=== PATIENT | female | born 2000 | race Caucasian/White ===

== ENCOUNTER 2022-11-27 09:41 | Emergency (ER) | payer OTHER ==
[2022-11-27] MEDS ORDERED: Acetaminophen 325 MG TAB ONE (10:20)
[2022-11-27] MEDS ORDERED: Ibuprofen 200 MG TAB ONE (10:20)
== END 2022-11-27 12:20 | disposition home or self-care (01) ==
LOC: ERS 09:41
DX: S52.122A Displaced fracture of head of left radius, initial encounter for closed fracture (principal); V18.0XXA Pedal cycle driver injured in noncollision transport accident in nontraffic accident, initial encounter

== ENCOUNTER 2023-09-27 19:26 | Emergency (ER) | payer MEDICAID, SELFPAY ==
[2023-09-27 19:50] LABS: Bacteria/HPF 2+ HPF (None Seen); Bilirubin Negative (Negative); Blood, Urine 2+ (Negative); CAUTI Indications for Culture Pelvic or flank pain; Clarity Extra Turbid (Clear); Glucose, Urine (Dipstick) Normal (Negative); Ketone, Urine Negative (Negative); Leukocyte 500 Leu/uL (Negative); Nitrite 1+ (Negative); Protein, Urine (Dipstick) 100 mg/dL (Neg-Trace); RBC/HPF 21-50 HPF (0-3); Specific Gravity, Urine 1.024 (1.002-1.036); WBC/HPF Greater than 50 HPF (0-3); pH, Urine 6.5 (5.0-9.0)
[2023-09-27 19:57] LABS: Urine Culture Reflex Yes Yes
== END 2023-09-27 20:32 | disposition home or self-care (01) ==
LOC: ERS 19:26
DX: N39.0 Urinary tract infection, site not specified (principal)
CPT/HCPCS: 81001; 87077; 87086; 87186; 99283